=== PATIENT | female | born 1975 | race Caucasian/White ===

== ENCOUNTER → 2016-12-28 | Day surgery (SDC) | payer OTHER, MEDICARE ==
[~2016-12-28] VITALS: Ht 176.5 cm; Wt 96.9 kg
[~2016-12-28] MED LIST: ATIVAN 0.5MG0.5 MG PO; BACTRIM DS1 TAB PO; CRESTOR40 MG PO; FENOFIBRATE145 MG PO; FISH OIL 11600 MG/5 PO; FISH OIL1000 MG PO; FLOMAX0.4 MG PO; GLUCAGON/GLUCAGE1 MG SUB-Q; GLUCOSE4 GM PO; LISINOPRIL20 MG PO; NORCO 5-325 TA1 EACH PO; NOVOLOG100 UNIT/1 SUB-Q; NOVOLOG100 UNIT/M SUB-Q; PERCOCET 5-3251 EACH PO; PHENERGAN25 M1 PO; PREVACID30 MG PO; VITAMIN D35000 UNI1 PO; ZOFRAN4 MG PO; ZOLOFT100 MG PO
--- NOTE | ~2016-12-28 | OR ---
PATIENT'S NAME: MICHELLE CHRISTIE [facility] AGE: 41 Y [address] ROOM: [place] [address] LOCATION: [facility] [place] ADMIT DATE: 12/28/2016 OR/Procedure Report DISCHARGE DATE: FAMILY PHYSICIAN: Janie Tapia APRN ATTENDING PHYSICIAN: Juvencio Kellogg SURGEON: Juvencio Kellogg MD TEMPORARY DATA ENTRY CLERK: DATE OF PROCEDURE: 12/28/2016 REFERRING PHYSICIANS: Dr. Tijerina as well as Dr. Marroquin, I believe, in [place]. PREOPERATIVE DIAGNOSIS: Recurrent pancreatitis, with need for frequent IV access and difficult IV access. POSTOPERATIVE DIAGNOSIS: Recurrent pancreatitis, with need for frequent IV access and difficult IV access. PROCEDURE PERFORMED: Left subclavian port placement. FINDINGS: Tip of the catheter appeared to be in good position at the conclusion of the case, aspirated blood, and flushed easily. ESTIMATED BLOOD LOSS: Minimal. COMPLICATIONS: None. INDICATIONS: The patient is a 41-year-old female who had presented for a port. I was asked to place this as the patient has recurrent pancreatitis. She gets hospitalized frequently and is a difficult IV stick. Because of this, I was asked to place a port. Discussed the risks, benefits, and alternatives with the patient including bleeding, infection, catheter malpositioning and shear, pneumothorax, as well as neural and vascular injury. She understood the risks and elected to proceed. DESCRIPTION OF PROCEDURE: The patient was taken to the operating room. She was supine. She was given IV sedation. Her chest and neck were then cleansed with ChloraPrep and sterilely draped. Local anesthetic was infiltrated just beneath the left clavicle. The access needle was inserted in the subclavian vein. On the first pass of the needle, wire access was obtained. Fluoroscopy was used to confirm the wire in appropriate position. Following this, further local anesthetic was infiltrated in the left chest wall. A transverse incision was created encompassing the wire. This was carried down through subcutaneous tissues down to the chest wall using electrocautery. A subcutaneous pocket was created. Sheath and dilator were inserted over the PATIENT'S NAME: MICHELLE CHRISTIE [facility] AGE: 41 Y [address] ROOM: [place] [address] LOCATION: [facility] [place] ADMIT DATE: 12/28/2016 OR/Procedure Report DISCHARGE DATE: FAMILY PHYSICIAN: Janie Tapia APRN ATTENDING PHYSICIAN: Juvencio Kellogg wire. The wire and dilator were then removed. The catheter was then inserted through the sheath. The sheath was removed. Using fluoroscopy, the tip of the catheter was positioned near the atriocaval junction. This was cut to its appropriate length. The port was then placed on the catheter. The locking hub was then secured. The port was placed in the subcutaneous pocket and secured to the chest wall using 2-0 PDS suture. The operative field was inspected. It appeared hemostatic. The port aspirated blood and was flushed with heparinized saline. The deep dermal layers were approximated with 3-0 Vicryl suture, and skin closed with 4-0 Monocryl suture. Sterile dressing was placed. We again examined this with fluoroscopy. The tip of the catheter appeared to be in good position. MD JASON RAMOS/chinmayl /[id number] d: 12/28/16 1703 t: 01/09/172043, OPERATIVE SUMMARY
== END | disposition disaster alternative care site (69) ==
LOC: GPOC 12-27 09:00 → GSDC 07:32
PROC: 0JH60XZ Insertion of Tunneled Vascular Access Device into Chest Subcutaneous Tissue and Fascia, Open Approach (ICD-10-PCS; principal; 2016-12-28)
DX: K86.1 Other chronic pancreatitis (principal); Z45.2 Encounter for adjustment and management of vascular access device; I10 Essential (primary) hypertension; M19.90 Unspecified osteoarthritis, unspecified site; F41.9 Anxiety disorder, unspecified; F32.9 Major depressive disorder, single episode, unspecified; E11.9 Type 2 diabetes mellitus without complications; F31.9 Bipolar disorder, unspecified; E78.1 Pure hyperglyceridemia; Z87.891 Personal history of nicotine dependence; Z91.040 Latex allergy status; Z88.5 Allergy status to narcotic agent; Z88.8 Allergy status to other drugs, medicaments and biological substances; Z79.899 Other long term (current) drug therapy; Z90.710 Acquired absence of both cervix and uterus; Z90.49 Acquired absence of other specified parts of digestive tract; Z98.890 Other specified postprocedural states
CPT/HCPCS: C1788; J0690; J1200; J1642; J2001; J7030